=== PATIENT | female | born 1940 | race Caucasian/White ===

== ENCOUNTER 2020-09-23 10:07 | Inpatient (IN) | payer MEDICARE, MEDICAID ==
[~2020-09-23] VITALS: Ht 160 cm; Wt 68.2 kg
[2020-09-23] VITALS (9 sets, daily range): BP systolic 143–172; BP diastolic 66–89
[2020-09-23] MEDS ORDERED: LIPITOR20 MG PO (10:14)
[2020-09-23] MEDS ORDERED: ZYLOPRIM300 MG PO (10:14)
[2020-09-23] MEDS ORDERED: VIBRAMYCIN 100100 MG PO (10:15)
[2020-09-23] MEDS ORDERED: PEPCID AC20 MG PO (10:15)
[2020-09-23] MEDS ORDERED: KLONOPIN0.5 MG PO (10:15)
[2020-09-23] MEDS ORDERED: LASIX20 MG PO (10:16)
[2020-09-23] MEDS ORDERED: LISINOPRIL20 MG PO (10:19)
[2020-09-23] MEDS ORDERED: PROBIOTIC1 EAC1 PO (10:19)
[2020-09-23] MEDS ORDERED: TRAZODONE HCL50 MG PO (10:20)
[2020-09-23] MEDS ORDERED: K-DUR20 MEQ PO (10:20)
[2020-09-23 11:07] LABS: ANION GAP 12.6 mmol/L (8-16); CALCIUM 11.8 mg/dL (8.5-10.1); CARBON DIOXIDE 25.5 mmol/L (21.0-32.0); CREATININE - SERUM 2.3 mg/dL (0.6-1.3); POTASSIUM - SERUM 3.1 mmol/L (3.5-5.1)
[2020-09-23 11:09] LABS: BILIRUBIN NEGATIVE (NEGATIVE); KETONE SMALL mg/dL (NEGATIVE); NITRITE NEGATIVE (NEGATIVE); SQUAMOUS EPITHELIAL 0-5 HPF (0-4); UROBILINOGEN NORMAL mg/dL (< 2); WHITE CELLS - URINE OCC HPF (0-4)
[2020-09-23 11:10] LABS: AMORPHOUS SEDIMENT <1+ LPF (NONE SEEN); BACTERIA FEW HPF (NONE SEEN)
[2020-09-23 11:11] LABS: BASOPHILS 0 % (0-2); EOSINOPHILS 0 % (0-7); HEMATOCRIT 29.3 % (36.0-48.0); IMMATURE GRANULOCYTES 0.3 % (0-5); LYMPHOCYTE ABS# 2.13 10x3/uL (1.18-3.74); MCH 27.5 pg (26.0-34.0); MCHC 30.7 g/dL (31.0-37.0); MCV 89.6 fL (80.0-100.0); MEAN PLATELET VOLUME 9.6 fL (7.4-10.4); MONOCYTES 8.7 % (2-11); NEUTROPHIL ABS# 8.65 10x3/uL (1.56-6.13); RBC 3.27 10x6/uL (4.00-5.40); RDW 19.1 % (11.5-14.5); WBC 11.9 10x3/uL (4.8-10.8)
[2020-09-23 11:13] LABS: ALBUMIN 2.5 g/dL (3.4-5.0); BILIRUBIN - TOTAL 0.45 mg/dL (0.2-1.3); PLATELET COUNT 318 10x3/uL (130-400); PROTEIN - SERUM 6.2 g/dL (6.4-8.2)
[2020-09-24] VITALS (7 sets, daily range): BP systolic 136–185; BP diastolic 77–92; BMI 26.5
[2020-09-24 07:25] LABS: BASOPHILS 0 % (0-2); EOSINOPHILS 0 % (0-7); HEMATOCRIT 28.7 % (36.0-48.0); HEMOGLOBIN 8.7 g/dL (12-16); IMMATURE GRANULOCYTES 0.6 % (0-5); LYMPHOCYTE ABS# 2.01 10x3/uL (1.18-3.74); LYMPHOCYTES 18.4 % (15-50); MCH 27.1 pg (26.0-34.0); MCHC 30.3 g/dL (31.0-37.0); MCV 89.4 fL (80.0-100.0); MEAN PLATELET VOLUME 9.6 fL (7.4-10.4); MONOCYTES 6.5 % (2-11); NEUTROPHIL ABS# 8.13 10x3/uL (1.56-6.13); NEUTROPHILS 74.5 % (40-80); PLATELET COUNT 334 10x3/uL (130-400); RBC 3.21 10x6/uL (4.00-5.40); RDW 19.1 % (11.5-14.5); WBC 10.9 10x3/uL (4.8-10.8)
--- NOTE | 2020-09-24 07:27 | NUR ---
REPORT RECEIVED FROM JUANCHO GARCIA. XIN.
[2020-09-24 07:35] LABS: INR 3.18 (0.85-1.17); PROTIME 30.4 SECONDS (11.6-15.0)
[2020-09-24 07:52] LABS: ALBUMIN 2.4 g/dL (3.4-5.0); BILIRUBIN - TOTAL 0.35 mg/dL (0.2-1.3); CARBON DIOXIDE 22.6 mmol/L (21.0-32.0); POTASSIUM - SERUM 3.5 mmol/L (3.5-5.1); PROTEIN - SERUM 5.3 g/dL (6.4-8.2)
[2020-09-24 08:11] LABS: ANION GAP 15.9 mmol/L (8-16)
--- NOTE | 2020-09-24 09:46 | NUR ---
PATIENT GRANDDAUGHTER CALLED, STATES THAT PATIENT WAS MECHANICAL SOFT AND ABLE TO EAT PRIOR TO SUDDEN DECLINE. NOTIFIED OF CURRENT STATUS. REQUESTS THAT SHE BE CALLED WITH SWALLOW STUDY RESULTS. PHONE # [phone].
--- NOTE | 2020-09-24 11:20 | NUR ---
PATIENT REPOSITIIONED IN BED. NAD.
--- NOTE | 2020-09-24 16:12 | NUR ---
DR KAHN PAGED 4 TIMES, ANSWER RECEIVED AT [phone]. NOTIFIED OF PATIENT LABS AND RHYTHM CHANGES WITH VENTRICULAR ECTOPY. NEW ORDERS RECEIVED TO CONSULT CARDIOLOGY.
--- NOTE | 2020-09-24 17:13 | NUR ---
REPORT GIVEN TO JUANCHO MCCRAY. STATES THAT ROOM IS CURRENTLY BEING CLEANED.
--- NOTE | 2020-09-24 17:20 | NUR ---
FAMILY UPDATED ON PATIENT STATUS.
--- NOTE | 2020-09-24 17:57 | NUR ---
PATIENT TAKEN TO CT
--- NOTE | 2020-09-24 20:00 | NUR ---
PT ARRIVED TO FLOOR FROM ER VIA BED. PT AWAKE BUT DOES NOT RESPOND TO QUESTIONS OR COMMANDS. WEAKNESS ALL EXTREMITIES. LUE APPEARS TO BE THE ONLY ONE SHE CAN LIFT. SEARS CATHETER DRAINING CLOUDY YELLOW URINE. PLACED SCD'S AND TELEMETRY ON PT. TELEMETRY RUNNING UNCONTROLLED AFIB. SPOKE WITH ICU NURSE - STATES IS STABLE. CONSULT FOR CARDIOLOGY IN AM. THERE IS A COPY OF DNR PT HAS AT [facility]. SCANNED COPY INTO COMPUTER. NEED DNR ORDER FOR HERE. ADMIT ASSESSMENT COMPLETE PER FLOW-SHEET. MEDS AND HISTORY FROM CORRECTION RECORDS. WILL CONTINUE TO MONITOR.
[2020-09-25 01:19] VITALS: BP 161/71
[2020-09-25 02:58] VITALS: Ht 160 cm; Wt 68.2 kg
--- NOTE | 2020-09-25 04:41 | NUR ---
OXYGEN SATURATION 89%. PLACED OXYGEN ON PT 2L/NC.
[2020-09-25 05:58] VITALS: BP 115/72
[2020-09-25 09:35] VITALS: BP 153/109
--- NOTE | 2020-09-25 10:31 | NUR ---
PT IN BED WITH EYES OPEN. NON-VERBAL. DOES NOT FOLLOW COMMANDS OR USE HEAD NODS TO ANSWER QUESTIONS. UNABLE TO GIVE MEDICATION. PT NEEDS A SWALLOW EVAL. REPORTED TO ME THAT PT SPITS OUT PILLS WHEN THEY ARE PLACED IN HER MOUTH. RESTING COMFORTABLY. NO S/S OF DISTRESS NOTED AT THIS TIME. BED IN LOWEST POSITION, BED RAILS X2, CALL LIGHT WITHIN REACH. WILL CONTINUE POC.
[2020-09-25 13:25] VITALS: BP 131/97
--- NOTE | 2020-09-25 14:43 | NUR ---
IN BED, EYES OPEN BUT IS NON-VERBAL AND DOESNT RESPOND TO ANY QUESTIONS. IV FLUIDS HUNG, TOLERATING WELL. WILL CONTINUE POC.
--- NOTE | 2020-09-25 15:39 | NUR ---
I have reviewed this patient and I concur with the Shift Assessment completed by the Licensed Practical Nurse today this shift.
--- NOTE | 2020-09-25 15:48 | NUR ---
STARTED PROCAL PER ORDER. PT IS IN BED, EYES OPEN AND SEDATED. PUPILS ARE FIXED, BREATHING THROUGH MOUTH, NON-VERBAL AND STILL NOT ANSWERING QUESTIONS IN ANY TYPE OF WAY. WILL CONTINUE POC.
[2020-09-25 18:22] VITALS: BP 135/90
--- NOTE | 2020-09-25 18:36 | MORECARE ---
CASE MANAGEMENT DISCHARGE SUMMARY PATIENT: GEORGIA DAVIS UNIT: [id number] ADM DATE: 09/23/20 AGE: 80 : 39 SEX: F ROOM/BED: D.2240 AUTHOR: DALJIT KEATING PHYSICIAN: REFERRING PHYSICIAN: BENNETT SILVA MD DATE OF SERVICE: 09/25/20 Discharge Plan Patient Name: GEORGIA DAVIS Facility: [facility]:[place] : 1940 Planned Disposition: Hospice Home Anticipated Discharge Date: 09/25/20 Discharge Date: Expected LOS: 2 Initial Reviewer: LO Initial Review Date: 09/23/2020 Generated: 09/25/20 7:35 pm Comments DCP- Discharge Planning Updated by LO: Reece Ervin on 09/25/20 5:[address] Phone call to [facility] to confirm residential status and to find out hospice contracts. Spoke with Malissa. Malissa stated that the patient is a resident and that [employer] contracts with all hospices. Malissa further stated that any discussions with the family about hospice should be through the granddaughter, Maria Esther ([phone]). Phone call to Maria Esther. Maria Esther stated that she would like to speak with the physician before making a decision about hospice. Maria Esther further stated that she would like to speak to the nurse taking care of her grandmother. Maria Esther stated that after speaking to the physician and the nurse she will speak to her mother and make a decision on hospice. Maria Esther stated that if hospice is agreed upon, then [facility] is the family choice. Informed staff nurse to call Maria Esther and margret physician. DONI telephonically signed for [facility] in anticipation of family choice. DC IMM telephonically explained, signed, and placed on chart per current Isolation protocols. DC IMM will be delivered via certified mail. CM will continue to follow and will assist as needed with dc plans/needs. DCPIA - Discharge Planning Initial Assessment Updated by LO: Reece Ervin on 09/25/20 6:35 pm * Is the patient Alert and Oriented? Yes * How many steps to enter\exit or inside your home? 0/0 * Pharmacy [facility] * Preadmission Environment Snf Facility * Facility Name [facility] * ADLs Partial Dependent * Partial ADLs (Assistance needed) Ambulation Bathing Dressing Eating Medication Management Toileting Transfers * Other Equipment [facility] * List name and contact numbers for known caregivers / representatives who currently or will assist patient after discharge: MARIA ESTHER ELLIS ([facility])[phone] PARISA CABRAL (dtr) [phone] * Verbal permission to speak to the caregivers and representatives has been obtained from the patient. Yes * Community resources currently utilized Other * Please name any agencies selected above. [facility] * Additional services required to return to the preadmission environment? Yes * Can the patient safely return to the preadmission environment? Yes * Has this patient been hospitalized within the prior 30 days at any hospital? No Patient Name: GEORGIA DAVIS Page [phone] at 1836 All edits/amendments must be made on the electronic document DICTATION DATE: 09/25/201834 ENGINEERING TEAM SUPERVISOR: ОЛЬГА 09/25/201834 RPT#: [id number] DC DATE: STATUS: ADM IN [facility] [address] [place] [address] END OF REPORT
[2020-09-25 19:54] VITALS: BP 164/77
--- NOTE | 2020-09-25 22:44 | NUR ---
TELEMETRY CALLED ABOUT HIGH RATE. PT LYING IN BED. NO APPARENT DISTRESS NOTED. EYES OPEN, NON-RESPONSIVE. NO CHANGES NOTED. CALLED BACK HEART RATE DOWN NOW. WILL CONTINUE TO MONITOR.
[2020-09-26 01:47] VITALS: BP 144/76
[2020-09-26 05:52] VITALS: BP 138/78
--- NOTE | 2020-09-26 09:48 | NUR ---
PT IS IN BED WITH EYES OPEN BUT NOT RESPONSIVE. BREATHING IS SHALLOW AND LABORED. SAT PT HOB UP MORE. NOT TAKING MEDICATION AT THIS TIME. FAMILY IS CONSIDERING HOSPICE, WAITING ON FINAL DECISION. BED IN LOWEST POSITION, BED RAILS X2, CALL LIGHT WITHIN REACH. WILL CONTINUE POC.
[2020-09-26 11:25] VITALS: BP 108/75
--- NOTE | 2020-09-26 16:18 | NUR ---
HUNG IV ABX, TOLERATING WELL. PT IN BED. STILL NON VERBAL OR RESPONSIVE TO STIMULATION OR VOICE. EYES ARE OPEN. BREATHING THROUGH MOUTH, LABORED AND UNEVEN. MUSCLE JERKING IN MOUTH AND EXTREMETIES. BED IN LOWEST POSITION, BED RAILS X2, CALL LIGHT WITHIN REACH. WILL CONTINUE POC.
--- NOTE | 2020-09-26 17:40 | MORECARE ---
"CASE MANAGEMENT DISCHARGE SUMMARY PATIENT: GEORGIA DAVIS UNIT: [id number] ADM DATE: 09/23/20 AGE: 80 : 39 SEX: F ROOM/BED: D.2240 AUTHOR: ZURIDOC PHYSICIAN: REFERRING PHYSICIAN: BENNETT SILVA MD DATE OF SERVICE: 09/26/20 Discharge Plan Patient Name: GEORGIA DAVIS Facility: [facility]:[place] : 1940 Planned Disposition: Hospice Home Anticipated Discharge Date: 09/25/20 Discharge Date: Expected LOS: 2 Initial Reviewer: [id number] Initial Review Date: 09/23/2020 Generated: 09/26/20 6:40 pm Comments DCP- Discharge Planning Updated by [id number]: Reece Ervin on 09/26/20 4:[address] DCP CHANGE TO [facility] pending AUTH | Dr. Deal at Nurse Station. CM team informed that family no longer wants [facility] to coordinate hospice. It is the family's wishes that the patient DC back to [facility] so that Hospice can be coordinated through [facility]. [facility] stated that the patient will need to have an AUTH before coming back. Notified manager mountain and physician. Spoke with Parisa Wiggins ([phone]) daughter of patient. Parisa stated that she would like for her mother to DC back to [facility] on Sunday so that coordination for hospice can happen. CM will continue to follow and will assist as needed with dc plans/needs. DCP- Discharge Planning Updated by [id number]: Reece Ervin on 09/25/20 5:[address] Phone call to [facility] to confirm residential status and to find out hospice contracts. Spoke with Malissa. Malissa stated that the patient is a resident and that [facility] contracts with all hospices. Malissa further stated that any discussions with the family about hospice should be through the granddaughter, Maria Esther ([phone]). Phone call to Maria Esther. Maria Esther stated that she would like to speak with the physician before making a decision about hospice. Maria Esther further stated that she would like to speak to the nurse taking care of her grandmother. Maria Esther stated that after speaking to the physician and the nurse she will speak to her mother and make a decision on hospice. Maria Esther stated that if hospice is agreed upon, then [facility] is the family choice. Informed staff nurse to call Maria Esther and margret physician. DONI telephonically signed for [facility] in anticipation of family choice. DC IMM telephonically explained, signed, and placed on chart per current Isolation protocols. DC IMM will be delivered via certified mail. CM will continue to follow and will assist as needed with dc plans/needs. DCPIA - Discharge Planning Initial Assessment Updated by [id number]: Reece Ervin on 09/25/20 6:35 pm * Is the patient Alert and Oriented? Yes * How many steps to enter\\exit or inside your home? 0/0 * Pharmacy [facility] * Preadmission Environment [facility] * Facility Name [facility] * ADLs Partial Dependent * Partial ADLs (Assistance needed) Ambulation Bathing Dressing Eating Medication Management Toileting Transfers * Other Equipment [facility] * List name and contact numbers for known caregivers / representatives who currently or will assist patient after discharge: MARIA ESTHER ELLIS (grndtr)[phone] PARISA CABRAL (dtr) [phone] * Verbal permission to speak to the caregivers and representatives has been obtained from the patient. Yes * Community resources currently utilized Other * Please name any agencies selected above. [facility] * Additional services required to return to the preadmission environment? Yes * Can the patient safely return to the preadmission environment? Yes * Has this patient been hospitalized within the prior 30 days at any hospital? No Coverage Notice Reviewer: [id number] Uri Ervin Notice Issued Date-Time: 09/25/2020 18:00 Notice Type: Patient Choice Letter Notice Delivered To: Family Member Relationship to Patient: Granddaughter Lab Support Technician Name: MARIA ESTHER ELLIS Delivery Method: MAIL - Mail Fariha Days: Prior Verbal Notification: Recipient Understood Notice: Yes Recipient Signature: Yes Med Rec Note Co-signed by Attending: Coverage Notice Comment: [facility] Reviewer: [id number] Uri Ervin Notice Issued Date-Time: 09/25/2020 18:00 Notice Type: IM Discharge Notice Notice Delivered To: Family Member Relationship to Patient: Granddaughter Lab Support Technician Name: MARIA ESTHER ELLIS Delivery Method: MAIL - Mail Fariha Days: Prior Verbal Notification: Recipient Understood Notice: Yes Recipient Signature: Yes Med Rec Note Co-signed by Attending: Coverage Notice Comment: DC IMM telephonically explained, signed, and placed on chart per current Isolation protocols. DC IMM will be delivered via certified mail. Last DP export: 09/25/20 5:36 p Patient Name: GEORGIA DAVIS Page [id number] at 1740 All edits/amendments must be made on the electronic document DICTATION DATE: 09/26/201739 METAL MOULDER: ОЛЬГА 09/26/201739 RPT#: [id number] DC DATE: STATUS: ADM IN [facility] [address] [place] [address] END OF REPORT"
--- NOTE | 2020-09-26 18:05 | NUR ---
I have reviewed this patient and I concur with the Shift Assessment completed by the Licensed Practical Nurse today this shift.
[2020-09-26 18:13] VITALS: BP 134/64
--- NOTE | 2020-09-26 18:28 | NUR ---
PT STATUS IS THE SAME. FAMILY IN ROOM. SPOKE IN DEPTH ABOUT CARE/HOSPICE SITUATION. PLANNED D/C IN THE AM TO [facility] FOR HOSPICE CARE AT THE FACILITY. ANSWERED ALL QUESTIONS. DENIES ANY NEEDS AT THIS TIME. WILL CONTINUE POC.
[2020-09-26 20:23] VITALS: BP 144/89
--- NOTE | 2020-09-26 21:30 | NUR ---
SPOKE WITH DAUGHTER, PARISA ON PHONE. PARISA STATES THE FAMILY NOW WANTS INPATIENT HOSPICE INSTEAD OF TRANSFERRING BACK TO [facility] FOR HOSPICE. I CALLED DR. ESTRADA AND APPRISED HER OF FAMILY REQUEST. PUT IN ORDER FOR HOSPICE CONSULT EVAL PER DR. ESTRADA. SPOKE WITH JUANCHO ARMSTRONG AT [facility] - PT TO BE EVALUATED IN AM.
[2020-09-27 01:19] VITALS: BP 123/86
--- NOTE | 2020-09-27 06:30 | NUR ---
0320 BREATHING SLOWS DOWN. TURNS TO AGONAL BREATHING THEN STOPS. 0336 NO PULSE. TELEMETRY CALLS - ASYSTOLE. 0338 NOTIFIED NURSE INSTRUCTOR MIKE. [address] ESTRADA. 0350 NOTIFIED FAMILY. 0402 ER PHYSICIAN, DR. MOORE PRONOUNCES TIME OF . 0423 NOTIFIED PASSENGER BOOKING CLERK. 0430 POST MORTEM PERFORMED. 0440 NOTIFIED [facility] - DOES NOT MEET CRITERIA - REF#[id number] [phone] NOTIFIED [facility], [place], [place]. [address] [facility] MORTUARY SERVICE ARRIVED TO TRANSPORT .
--- NOTE | 2020-09-27 12:02 | MORECARE ---
"CASE MANAGEMENT DISCHARGE SUMMARY PATIENT: GEORGIA DAVIS UNIT: [id number] ADM DATE: 09/23/20 AGE: 80 : 39 SEX: F ROOM/BED: D.2240 AUTHOR: DALJIT KEATING PHYSICIAN: REFERRING PHYSICIAN: BENNETT SILVA MD DATE OF SERVICE: 09/27/20 Discharge Plan Patient Name: GEORGIA DAVIS Facility: [facility]:[place] : 1940 Planned Disposition: Hospice Home Anticipated Discharge Date: 09/25/20 Discharge Date: 09/27/2020 Expected LOS: 2 Initial Reviewer: LO Initial Review Date: 09/23/2020 Generated: 09/27/20 1:02 pm Comments DCP- Discharge Planning Updated by [id number]: Reece Ervin on 09/26/20 4:[address] DCP CHANGE TO [facility] pending AUTH | Dr. Deal at Nurse Station. CM team informed that family no longer wants [facility] to coordinate hospice. It is the family's wishes that the patient DC back to [facility] so that Hospice can be coordinated through [facility]. [facility] stated that the patient will need to have an AUTH before coming back. Notified supervisor keymodule assembly and physician. Spoke with Parisa Wiggins ([phone]) daughter of patient. Parisa stated that she would like for her mother to DC back to [facility] on Sunday so that coordination for hospice can happen. CM will continue to follow and will assist as needed with dc plans/needs. DCP- Discharge Planning Updated by [id number]: Reece Ervin on 09/25/20 5:[address] Phone call to [facility] to confirm residential status and to find out hospice contracts. Spoke with Malissa. Malissa stated that the patient is a resident and that [facility] contracts with all hospices. Malissa further stated that any discussions with the family about hospice should be through the granddaughter, Maria Esther ([phone]). Phone call to Maria Esther. Maria Esther stated that she would like to speak with the physician before making a decision about hospice. Maria Esther further stated that she would like to speak to the nurse taking care of her grandmother. Maria Esther stated that after speaking to the physician and the nurse she will speak to her mother and make a decision on hospice. Maria Esther stated that if hospice is agreed upon, then [facility] is the family choice. Informed staff nurse to call Maria Esther and margret physician. DONI telephonically signed for [facility] in anticipation of family choice. DC IMM telephonically explained, signed, and placed on chart per current Isolation protocols. DC IMM will be delivered via certified mail. CM will continue to follow and will assist as needed with dc plans/needs. DCPIA - Discharge Planning Initial Assessment Updated by LO: Reece Ervin on 09/25/20 6:35 pm * Is the patient Alert and Oriented? Yes * How many steps to enter\\exit or inside your home? 0/0 * Pharmacy [facility] * Preadmission Environment [facility] * Facility Name [facility] * ADLs Partial Dependent * Partial ADLs (Assistance needed) Ambulation Bathing Dressing Eating Medication Management Toileting Transfers * Other Equipment [facility] * List name and contact numbers for known caregivers / representatives who currently or will assist patient after discharge: MARIA ESTHER ELLIS ([facility][phone] PARISA CABRAL (dtr) [phone] * Verbal permission to speak to the caregivers and representatives has been obtained from the patient. Yes * Community resources currently utilized Other * Please name any agencies selected above. [facility] * Additional services required to return to the preadmission environment? Yes * Can the patient safely return to the preadmission environment? Yes * Has this patient been hospitalized within the prior 30 days at any hospital? No Coverage Notice Reviewer: [id number] Uri Ervin Notice Issued Date-Time: 09/25/2020 18:00 Notice Type: Patient Choice Letter Notice Delivered To: Family Member Relationship to Patient: Granddaughter Manager Nuclear Name: MARIA ESTHER ELLIS Delivery Method: MAIL - Mail Fariha Days: Prior Verbal Notification: Recipient Understood Notice: Yes Recipient Signature: Yes Med Rec Note Co-signed by Attending: Coverage Notice Comment: [facility] Reviewer: [id number] Uri Ervin Notice Issued Date-Time: 09/25/2020 18:00 Notice Type: IM Discharge Notice Notice Delivered To: Family Member Relationship to Patient: Granddaughter Manager Nuclear Name: MARIA ESTHER ELLIS Delivery Method: MAIL - Mail Fariha Days: Prior Verbal Notification: Recipient Understood Notice: Yes Recipient Signature: Yes Med Rec Note Co-signed by Attending: Coverage Notice Comment: DC IMM telephonically explained, signed, and placed on chart per current Isolation protocols. DC IMM will be delivered via certified mail. Last DP export: 09/26/20 4:40 p Patient Name: GEORGIA DAVIS Page [phone] at 1202 All edits/amendments must be made on the electronic document DICTATION DATE: 09/27/20 120 CUSTOMER SUPPORT REPRESENTATIVE: ОЛЬГА 09/27/20 1202 RPT#: [id number] DC DATE:09/27/20 STATUS: DIS IN [facility] [address] [place] [address] END OF REPORT"
== END 2020-09-27 04:02 | DRG 871 ==
LOC: D.ER 10:07 → D.EDHOLD 15:59 → D.MS 15:59
PROVIDERS: Family Medicine; ADMIT Legal Medicine; ATTEND Legal Medicine
DX: A41.9 Sepsis, unspecified organism (principal); G93.41 Metabolic encephalopathy; N17.9 Acute kidney failure, unspecified; I69.351 Hemiplegia and hemiparesis following cerebral infarction affecting right dominant side; N39.0 Urinary tract infection, site not specified; N13.30 Unspecified hydronephrosis; E87.6 Hypokalemia; D64.9 Anemia, unspecified; I10 Essential (primary) hypertension; I25.10 Atherosclerotic heart disease of native coronary artery without angina pectoris; R09.02 Hypoxemia; F03.90 Unspecified dementia, unspecified severity, without behavioral disturbance, psychotic disturbance, mood disturbance, and anxiety; Z66 Do not resuscitate